=== PATIENT | female | born 1950 | race Caucasian/White ===

== ENCOUNTER 2019-05-04 11:40 | Emergency (ER) | payer OTHER ==
--- NOTE | 2019-05-04 12:33 | ER ---
Nurse's Notes [facility] Name: Ramya Tamayo Age: 68 yrs Sex: Female : 1950 Arrival Date: 05/04/2019 Time: 11:44 Bed 13 Private MD: Unknown, Unknown Diagnosis: Encounter for fitting and adjustment of other devices-orthoglass splint Presentation: 05/04 11:47 Presenting complaint: Patient states: Splint placed to R arm after being diagnosed with ss a fracture after a fall. [facility] because the splint is too tight and her fifth finger is tingling. Urgent care instructed patient to come to ER for evaluation and adjustment. Transition of care: patient was not received from another setting of care. Onset of symptoms was May 04, 2019. Risk Assessment: Do you want to hurt yourself or someone else? Patient reports no desire to harm self or others. Initial Sepsis Screen: Does the patient meet any 2 criteria? No. Patient's initial sepsis screen is negative. Does the patient have a suspected source of infection? No. Patient's initial sepsis screen is negative. Care prior to arrival: None. 11:47 Method Of Arrival: Ambulatory ss 11:47 Acuity: ASAD 5 ss Historical: - Allergies: 11:50 No Known Allergies; ss - Home Meds: 11:50 Victoza [Active]; ss - PMHx: 11:50 Hypertension; Diabetes; ss - Immunization history:: Adult Immunizations up to date. - Social history:: Smoking status: Patient/guardian denies using tobacco, but has a distant history of tobacco abuse. - Ebola Screening: : Patient denies exposure to infectious person Patient denies travel to an Ebola-affected area in the 21 days before illness onset. Screenin:33 Abuse screen: Denies threats or abuse. Denies injuries from another. Nutritional aj1 screening: No deficits noted. Tuberculosis screening: No symptoms or risk factors identified. 12:44 Fall Risk None identified. aj1 Assessment: 12:33 General: Appears in no apparent distress. comfortable, Behavior is calm, cooperative, aj1 appropriate for age. Pain: Complains of pain in right forearm. Neuro: Level of Consciousness is awake, alert, obeys commands, Oriented to person, place, time, situation. Cardiovascular: Capillary refill < 3 seconds in right fingers Patient's skin is warm and dry. Respiratory: Airway is patent Respiratory effort is even, unlabored, Respiratory pattern is regular, symmetrical. GI: No signs and/or symptoms were reported involving the gastrointestinal system. : No signs and/or symptoms were reported regarding the genitourinary system. EENT: No signs and/or symptoms were reported regarding the EENT system. Derm: Skin is pink, warm \T\ dry. normal. Musculoskeletal: splint in place, splint placement verified by Bao Doty NP. Vital Signs: 11:50 BP 186 / 79; Pulse 75; Resp 17; Temp 98.2(TE); Pulse Ox 99% on R/A; Weight 89.81 kg; ss Height 5 ft. 6 in. (167.64 cm); Pain 6/10; 11:50 Body Mass Index 31.96 (89.81 kg, 167.64 cm) ED Course: 11:44 Patient arrived in ED. cl3 11:45 Unknown, Unknown is Private Physician. cl3 11:49 Triage completed. ss 11:49 Viji oGre FNP-C [facility]. kb 11:50 Bharath Kapadia MD is Attending Physician. kb 11:50 Arm band placed on left wrist. ss 12:04 Mellisa Mckinley, RN is Primary Nurse. aj1 12:15 Wound care: to skin tear to right forearm, cleaned with chlorhexidine and normal dh3 saline; applied triple antibiotic, non-adherent and stretch gauze. 12:19 Orthoglass splint: Sugar tong splint applied on right arm. capillary refill less than 3 dh3 seconds, overseen by Viji Gore N.P. 12:33 Patient has correct armband on for positive identification. Bed in low position. Call aj1 light in reach. Side rails up X 1. 12:33 No provider procedures requiring assistance completed. aj1 12:44 Patient did not have IV access during this emergency room visit. aj1 Administered Medications: No medications were administered Outcome: 12:31 Discharge ordered by . kb 12:44 Discharged to home ambulatory. aj1 12:44 Condition: good 12:44 Discharge instructions given to patient, family, Instructed on discharge instructions, follow up and referral plans. no drinking with medication, no driving heavy equipment, medication usage, Demonstrated understanding of instructions, follow-up care, medications, Prescriptions given X 1. 12:44 Patient left the ED. aj1 Signatures: Viji Gore, FÁTIMA-C STAFF N[employer] OFFICER-Mellisa Tamayo RN RN aj1 Ewa Gurrola RN RN Margo Burr 3 Martita Sharif 3
--- NOTE | 2019-05-04 12:33 | EDPHYS ---
Physician Documentation [facility] Name: Ramya Tamayo Age: 68 yrs Sex: Female : 1950 Arrival Date: 05/04/2019 Time: 11:44 Bed 13 Private MD: Unknown, Unknown ED Physician Bharath Kapadia HPI: 05/04 11:57 This 68 yrs old Unknown Female presents to ER via Ambulatory with complaints of Fall kb Injury, Hand Injury. 11:57 The patient has not experienced similar symptoms in the past. The patient has not kb recently seen a physician. 11:57 Pt reports she fell on Tuesday, diagnosed with a forearm fracture and they put a splint kb on. States the splint started hurting before she got back home and has been hurting since Tuesday. States her little finger is pushed into her ring finger so it is causing the pain. [facility] and they told her she needed to be seen at the ER. Also requests a prescription for pain medication because they just told her to take Aleve.. Severity of symptoms: At their worst the symptoms were mild in the emergency department the symptoms are unchanged. Historical: - Allergies: 11:50 No Known Allergies; ss - Home Meds: 11:50 Victoza [Active]; ss - PMHx: 11:50 Hypertension; Diabetes; ss - Immunization history:: Adult Immunizations up to date. - Social history:: Smoking status: Patient/guardian denies using tobacco, but has a distant history of tobacco abuse. - Ebola Screening: : Patient denies exposure to infectious person Patient denies travel to an Ebola-affected area in the 21 days before illness onset. ROS: 11:56 Constitutional: Negative for fever, chills, and weight loss, Cardiovascular: Negative kb for chest pain, palpitations, and edema, Respiratory: Negative for shortness of breath, cough, wheezing, and pleuritic chest pain, Abdomen/GI: Negative for abdominal pain, nausea, vomiting, diarrhea, and constipation, Skin: Negative for injury, rash, and discoloration, Neuro: Negative for headache, weakness, numbness, tingling, and seizure. 11:56 MS/extremity: Positive for injury or acute deformity, pain, of the right forearm. Exam: 11:56 Constitutional: This is a well developed, well nourished patient who is awake, alert, kb and in no acute distress. Head/Face: Normocephalic, atraumatic. Neck: Trachea midline, no thyromegaly or masses palpated, and no cervical lymphadenopathy. Supple, full range of motion without nuchal rigidity, or vertebral point tenderness. No Meningismus. Chest/axilla: Normal chest wall appearance and motion. Nontender with no deformity. No lesions are appreciated. Cardiovascular: Regular rate and rhythm with a normal S1 and S2. No gallops, murmurs, or rubs. Normal PMI, no JVD. No pulse deficits. Respiratory: Lungs have equal breath sounds bilaterally, clear to auscultation and percussion. No rales, rhonchi or wheezes noted. No increased work of breathing, no retractions or nasal flaring. Abdomen/GI: Soft, non-tender, with normal bowel sounds. No distension or tympany. No guarding or rebound. No evidence of tenderness throughout. Skin: Warm, dry with normal turgor. Normal color with no rashes, no lesions, and no evidence of cellulitis. Neuro: Awake and alert, GCS 15, oriented to person, place, time, and situation. Cranial nerves II-XII grossly intact. Motor strength 5/5 in all extremities. Sensory grossly intact. Cerebellar exam normal. Normal gait. 11:56 Musculoskeletal/extremity: Extremities: grossly normal except: noted in the right forearm: splint in place. Vital Signs: 11:50 BP 186 / 79; Pulse 75; Resp 17; Temp 98.2(TE); Pulse Ox 99% on R/A; Weight 89.81 kg; ss Height 5 ft. 6 in. (167.64 cm); Pain 6/10; 11:50 Body Mass Index 31.96 (89.81 kg, 167.64 cm) Procedures: 12:31 Splinting: Splint applied to right forearm using Orthoglass splint, applied by tech. kb Examined by me, post splint application: neurovascular intact, 2+ distal pulses palpable, brisk capillary refill noted, Patient tolerated well. MDM: 11:51 Patient medically screened. kb 11:55 Data reviewed: vital signs, nurses notes. Data interpreted: Pulse oximetry: on room air kb is 99 %. Interpretation: normal. Counseling: I had a detailed discussion with the patient and/or guardian regarding: the historical points, exam findings, and any diagnostic results supporting the discharge/admit diagnosis, radiology results, the need for outpatient follow up, a orthopedic surgeon, to return to the emergency department if symptoms worsen or persist or if there are any questions or concerns that arise at home. 12:33 ED course: Pt reports immediate relief of pain after changing splint. kb 05/04 11:55 Order name: Sugar Tong Forearm Splint; Complete Time: 12:23 kb Administered Medications: No medications were administered Disposition: 15:16 Co-signature as Attending Physician, Bharath Kapadia MD I agree with the assessment and castro plan of care. Disposition: 05/04/19 12:31 Discharged to Home. Impression: Encounter for fitting and adjustment of other devices - orthoglass splint. - Condition is Stable. - Discharge Instructions: Cast or Splint Care, [id number]. - Prescriptions for Tylenol- Codeine #3 300-30 mg Oral Tablet - take 1 tablet by ORAL route every 6 hours As needed; 10 tablet. - Medication Reconciliation Form, Thank You Letter, Antibiotic Education, Prescription Opioid Use form. - Follow up: Emergency Department; When: As needed; Reason: Worsening of condition. Follow up: Private Physician; When: 2 - 3 days; Reason: Recheck today's complaints, Continuance of care, Re-evaluation by your physician. Signatures: Viji Gore, SUGAR REFINER-C SUGAR REFINER-Mellisa Tamayo RN RN aj1 Bharath Kapadia MD MD cha Smirch, Shelby, RN RN ss Corrections: (The following items were deleted from the chart) 12:44 12:31 05/04/2019 12:31 Discharged to Home. Impression: Encounter for fitting and aj1 adjustment of other devices - orthoglass splint. Condition is Stable. Discharge Instructions: Cast or Splint Care, [id number]. Prescriptions for Tylenol-Codeine #3 300-30 mg Oral Tablet - take 1 tablet by ORAL route every 6 hours As needed; 10 tablet. and Forms are Medication Reconciliation Form, Thank You Letter, Antibiotic Education, Prescription Opioid Use. Follow up: Emergency Department; When: As needed; Reason: Worsening of condition. Follow up: Private Physician; When: 2 - 3 days; Reason: Recheck today's complaints, Continuance of care, Re-evaluation by your physician. kb
== END 2019-05-04 12:44 | disposition home or self-care (01) ==
LOC: ER 11:40
PROC: 2W3CX1Z Immobilization of Right Lower Arm using Splint (ICD-10-PCS; principal; 2019-05-04)
DX: Z46.89 Encounter for fitting and adjustment of other specified devices (principal)
CPT/HCPCS: 99283